=== PATIENT | female | born 1990 | race Caucasian/White ===

== ENCOUNTER → 2022-04-30 | Outpatient (RCR) | payer BC | LOC: PT 14:59 | PROVIDERS: ATTEND Family Medicine | DX: M25.552 Pain in left hip (principal); S73.192A Other sprain of left hip, initial encounter ==

== ENCOUNTER → 2022-05-30 | Outpatient (RCR) | payer BC | LOC: PT 05-02 13:43 | PROVIDERS: ATTEND Family Medicine | DX: M25.552 Pain in left hip (principal); S73.192A Other sprain of left hip, initial encounter | CPT/HCPCS: 97139 ==

== ENCOUNTER 2022-06-11 16:00 | Outpatient (RCR) | payer BC | END 2022-06-30 | LOC: PT 16:00 | PROVIDERS: ATTEND Family Medicine | DX: M25.552 Pain in left hip (principal); S73.192A Other sprain of left hip, initial encounter ==

== ENCOUNTER 2023-05-22 17:22 | Emergency (ER) | payer BC ==
[~2023-05-22] VITALS: Ht 165.1 cm; Wt 88.5 kg
[2023-05-22 20:28] LABS: BASOPHILS % 0.2 % (0.0-1.0); EOSINOPHILS # (AUTO) 0.1 (0.0-0.4); EOSINOPHILS % 1.4 % (0.0-6.0); HEMATOCRIT 34.8 % (34.2-44.1); HEMOGLOBIN 11.1 g/dL (12.0-16.0); LYMPHOCYTES # (AUTO) 4.2 (1.0-3.2); LYMPHOCYTES % 40.6 % (18.0-39.1); MEAN CORPUSCULAR HEMOGLOBIN 24.9 pg (28-32); MEAN CORPUSCULAR HGB CONC 31.9 g/dL (31-35); MEAN CORPUSCULAR VOLUME 78.2 fL (81-99); MONOCYTES # (AUTO) 0.9 (0.2-0.8); MONOCYTES % 8.9 % (4.4-11.3); NEUTROPHILS # (AUTO) 4.9 (2.1-6.9); NEUTROPHILS % 47.9 % (38.7-80.0); PLATELET COUNT 372 x10e3/uL (140-360); RED BLOOD COUNT 4.45 x10e6/uL (3.6-5.1)
[2023-05-22 20:32] LABS: CLARITY,URINE CLEAR (CLEAR); COLOR,URINE YELLOW (YELLOW); KETONES,URINE NEGATIVE (NEGATIVE); LEUKOCYTE ESTERASE ,URINE NEGATIVE (NEGATIVE); NITRITE,URINE NEGATIVE (NEGATIVE); PROTEIN,URINE DIPSTICK NEGATIVE (NEGATIVE); URINE UROBILINOGEN 0.2 mg/dL (0.2 - 1)
[2023-05-22 20:42] LABS: ALBUMIN 3.7 g/dL (3.5-5.0); ALBUMIN/GLOBULIN RATIO 1.1 (0.8-2.0); ANION GAP 13.7 mmol/L (8-16); CALCIUM 8.8 mg/dL (8.4-10.2); CREATININE, SERUM 0.77 mg/dL (0.57-1.11); LIPASE 52 U/L (8-78); POTASSIUM 3.7 mmol/L (3.5-5.1)
[2023-05-22 20:43] LABS: BACTERIA,URINE FEW /HPF; EPITHELIAL CELLS,URINE MODERATE /LPF
[2023-05-22] MEDS ORDERED: IOPAMIDOL 370 MG/ML 100 ML INFUS..BTL INJ ONE (21:22)
[2023-05-22] MEDS ORDERED: DICYCLOMINE HCL20 MG PO (22:40)
[2023-05-22 22:56] VITALS: BP 128/90; O2SAT 100
== END 2023-05-22 22:58 | disposition home or self-care (01) ==
LOC: ER 17:30
DX: R10.9 Unspecified abdominal pain (principal); R19.7 Diarrhea, unspecified; K57.90 Diverticulosis of intestine, part unspecified, without perforation or abscess without bleeding
CPT/HCPCS: 36415; 74177; 80053; 81001; 83690; 84702; 85025; 99284; Q9967